=== PATIENT | male | born 1970 | race Caucasian/White ===

== ENCOUNTER 2020-02-24 16:45 | Emergency (ER) | payer BC ==
[2020-02-24 17:06] VITALS: BP 122/77; PULSE 97
[2020-02-24] MEDS ORDERED: FLU VACC QS2020-21(6MOS UP)/PF 60 MCG/0.5 ML SYRINGE IM ONE (17:30)
--- NOTE | 2020-02-24 19:43 | EDM.PDOC ---
ED HPI GENERAL MEDICAL PROBLEM - General Chief Complaint: Respiratory Problem Stated Complaint: COUGH/SOB/HEADACHE Time Seen by Provider: 02/24/20 17:08 Source of Information: Reports: Patient, RN Notes Reviewed History Limitations: Reports: No Limitations - History of Present Illness INITIAL COMMENTS - FREE TEXT/NARRATIVE: Patient is a 49-year-old male presenting to the emergency department with complaints of intermittent fever, cough, shortness of breath, nausea, vomiting, diarrhea. States that symptoms have been going on for 2 weeks but have worsened over the last few days. He was Covid tested a couple weeks back which came back negative. He had a Covid test completed on Thursday of this week as well, and these results are pending. Patient denies any history of asthma or any other other underlying medical history. When asked if he is able to keep foods or liquids down, he states that he does not eat or drink anything because it makes him nauseous. States that his temperatures at home have been between 98 degrees to 100 degrees. Vital signs on triage were stable. Blood pressure 122/77, respiratory rate 20, pulse 97, temp 98.7, oxygen 93% on room air. His oxygen had sat increased to 95% on room air by the time of my exam. Generalized Pain Score (Numeric/FACES): 5 - Related Data Allergies Allergy/AdvReac Type Severity Reaction Status Date / Time No Known Allergies Allergy Verified 02/24/20 17:07 Home Meds: Home Meds . [No Known Home Meds] 02/24/20 [History] Past Medical History HEENT History: Reports: Impaired Vision Gastrointestinal History: Reports: Other (See Below) Other Gastrointestinal History: chronic diarrhea Psychiatric History: Reports: Anxiety, Depression - Past Surgical History GI Surgical History: Reports: Hernia Repair/Other Social & Family History - Family History Family Medical History: No Pertinent Family History - Tobacco Use Tobacco Use Status *Q: Never Tobacco User Second Hand Smoke Exposure: No - Caffeine Use Caffeine Use: Reports: None - Recreational Drug Use Recreational Drug Use: No - Living Situation & Occupation Living situation: Reports: Occupation: Employed ED ROS GENERAL - Review of Systems Review Of Systems: See Below Constitutional: Reports: Fever, Chills, Fatigue, Decreased Appetite HEENT: Reports: No Symptoms. Denies: Sinus Problem, Throat Pain, Vision Change Respiratory: Reports: Shortness of Breath, Cough Cardiovascular: Reports: No Symptoms Endocrine: Reports: No Symptoms GI/Abdominal: Reports: Abdominal Pain, Diarrhea, Nausea, Vomiting : Reports: No Symptoms Musculoskeletal: Reports: No Symptoms Skin: Reports: No Symptoms Neurological: Reports: No Symptoms Psychiatric: Reports: No Symptoms Hematologic/Lymphatic: Reports: No Symptoms Immunologic: Reports: No Symptoms ED EXAM, GENERAL - Physical Exam Exam: See Below Exam Limited By: No Limitations General Appearance: Alert, WD/WN, No Apparent Distress Respiratory/Chest: No Respiratory Distress, Lungs Clear, Normal Breath Sounds, No Accessory Muscle Use, Chest Non-Tender Cardiovascular: Normal Peripheral Pulses, Regular Rate, Rhythm, No Edema, No Gallop, No JVD, No Murmur, No Rub GI/Abdominal: Normal Bowel Sounds, Soft, Non-Tender, No Organomegaly, No Distention, No Abnormal Bruit, No Mass Neurological: Alert, Oriented, CN II-XII Intact, Normal Cognition, Normal Gait, Normal Reflexes, No Motor/Sensory Deficits Psychiatric: Normal Affect, Normal Mood Skin Exam: Warm, Dry, Intact, Normal Color, No Rash Course - Vital Signs Last Recorded V/S: Last Vital Signs Temp 98.7 F 02/24/20 17:04 Pulse 97 02/24/20 17:04 Resp 20 02/24/20 17:04 BP 122/77 02/24/20 17:04 Pulse Ox 93 L 02/24/20 17:04 - Orders/Labs/Meds Orders: Active Orders 24 hr Category Date Time Status Chest 1V Frontal [CR] Stat Exams 02/24/20 17:32 Taken COMPREHENSIVE METABOLIC PN,CMP [CHEM] Stat Lab 02/24/20 18:30 Received FERRITIN [CHEM] Routine Lab 02/24/20 18:30 Received LACTATE DEHYDROGENASE,LDH [CHEM] Routine Lab 02/24/20 18:30 Received MG [MAGNESIUM] [CHEM] Stat Lab 02/24/20 18:30 Received Isolation [COMM] Routine Oth 02/24/20 18:17 Ordered Labs: Laboratory Tests 02/24/20 02/24/20 Range/Units 18:30 18:30 WBC 5.50 (4.23-9.07) K/mm3 RBC 4.97 (4.63-6.08) M/mm3 Hgb 15.0 D (13.7-17.5) gm/dl Hct 45.8 (40.1-51.0) % MCV 92.2 (79.0-92.2) fl MCH 30.2 (25.7-32.2) pg MCHC 32.8 (32.2-35.5) g/dl RDW Std Deviation 38.6 (35.1-43.9) fL Plt Count 138 L D (163-337) K/mm3 MPV 10.3 (9.4-12.3) fl Neut % (Auto) 85.3 H (34.0-67.9) % Lymph % (Auto) 7.6 L (21.8-53.1) % [place] % (Auto) 6.9 (5.3-12.2) % Eos % (Auto) 0 L (0.8-7.0) Baso % (Auto) 0.0 L (0.1-1.2) % Neut # (Auto) 4.69 (1.78-5.38) K/mm3 Lymph # (Auto) 0.42 L (1.32-3.57) K/mm3 [place] # (Auto) 0.38 (0.30-0.82) K/mm3 Eos # (Auto) 0.00 L (0.04-0.54) K/mm3 Baso # (Auto) 0.00 L (0.01-0.08) K/mm3 D-Dimer, Quantitative 1.89 H (0.19-0.50) mg/L Meds: Medications Discontinued Medications Generic Name Dose Route Start Last Admin Trade Name Freq PRN Reason Stop Dose Admin Influenza Virus Vaccine 60 mcg 02/24/20 17:30 Fluzone Quad [id number] Syringe IM 02/24/20 17:31 .ONCE ONE - Re-Assessments/Exams Free Text/Narrative Re-Assessment/Exam: She is a 49-year-old male presenting to the emergency department with complaints of a 2-week history of intermittent fevers, cough, shortness of breath, nausea, vomiting, diarrhea. He had told the triage nurse that it began 2 days ago, however he advised me that it was 2 weeks ago. Symptoms have worsened over the last few days. He was Covid tested on Thursday and currently pending. His exam is grossly unremarkable. Oxygen saturations have been 93 to 95% on room air based on his symptoms, and highly suspicious that he has Covid. I have ordered a chest x-ray, CBC, CMP, CRP, D-dimer, ferritin, LDH. 02/24/20 19:41 I was notified by nurse, MERLE Glover that patient has left the emergency department AGAINST MEDICAL ADVICE. He did not want to stay to sign the paperwork. Encouraged him to stay so that I may speak with him, however he stated he is going home and he does not feel better. Departure - Departure Time of Disposition: 19:43 Disposition: Against Medical Advice 07 Clinical Impression: Left against medical advice - Discharge Information Referrals: PCP,None [Primary Care Provider] - Forms: ED Department Discharge Sepsis Event Note (ED) - Evaluation Sepsis Screening Result: No Definite Risk - Focused Exam Vital Signs: Vital Signs Temp Pulse Resp BP Pulse Ox 02/24/20 17:04 98.7 F 97 20 122/77 93 L - My Orders Last 24 Hours: My Active Orders 02/24/20 17:32 Chest 1V Frontal [CR] Stat 02/24/20 18:17 Isolation [COMM] Routine 02/24/20 18:30 COMPREHENSIVE METABOLIC PN,CMP [CHEM] Stat FERRITIN [CHEM] Routine LACTATE DEHYDROGENASE,LDH [CHEM] Routine MG [MAGNESIUM] [CHEM] Stat - Assessment/Plan Last 24 Hours: My Active Orders 02/24/20 17:32 Chest 1V Frontal [CR] Stat 02/24/20 18:17 Isolation [COMM] Routine 02/24/20 18:30 COMPREHENSIVE METABOLIC PN,CMP [CHEM] Stat FERRITIN [CHEM] Routine LACTATE DEHYDROGENASE,LDH [CHEM] Routine MG [MAGNESIUM] [CHEM] Stat
--- NOTE | 2020-02-27 08:34 | CR ---
PROCEDURE INFORMATION: Exam: XR Chest, 1 View Exam date and time: 02/24/2020 5:47 PM Age: 49 years old Clinical indication: Cough and shortness of breath; Patient HX: Covid? TECHNIQUE: Imaging protocol: XR of the chest Views: 1 view. COMPARISON: DX Chest 2V 07/26/2015 5:25 PM FINDINGS: Lungs: There is now peripheral partially consolidative process left midlung Pleural space: Unremarkable. No pleural effusion. No pneumothorax. Heart/Mediastinum: Unremarkable. No cardiomegaly. Bones/joints: Unremarkable. IMPRESSION: Left lateral mid lung infiltrate Thank you for allowing us to participate in the care of your patient. Dictated and Authenticated by: Ray Posadas MD 02/24/2020 7:22 PM Central Time ([place] & Spring) [facility]
== END 2020-02-24 19:31 | disposition left against medical advice (07) ==
LOC: JD.ED 16:45
DX: R50.9 Fever, unspecified (principal); R05 Cough; R06.02 Shortness of breath; R11.2 Nausea with vomiting, unspecified; R19.7 Diarrhea, unspecified; R53.83 Other fatigue; R10.9 Unspecified abdominal pain; R63.0 Anorexia
CPT/HCPCS: 36415; 71045; 71045-26; 80053; 82728; 83615; 83735; 85025; 85379; 86140; 87804; 99282; 99285-25

== ENCOUNTER 2020-02-25 16:38 | Emergency (ER) | payer BC ==
[2020-02-25] MEDS ORDERED: LORazepam 0.5 MG Tab PO ONE (17:14)
--- NOTE | 2020-02-25 17:21 | EDM.PDOC ---
ED HPI GENERAL MEDICAL PROBLEM - General Chief Complaint: General Stated Complaint: CANT SLEEP/WAS TESTED FOR COVID YESTERDAY Time Seen by Provider: 02/25/20 16:57 Source of Information: Reports: Patient, RN Notes Reviewed History Limitations: Reports: No Limitations - History of Present Illness INITIAL COMMENTS - FREE TEXT/NARRATIVE: Patient is a 49-year-old male who presents to the ED for the evaluation of his ongoing COVID-19 symptoms. Patient notes he has been sick for the last 2 weeks, he was seen in this ER yesterday, had some labs taken but he left without getting the results. He states that he has not been able to sleep in the last 5 days. He was tested from the [facility] for COVID-19, and relays that he had a negative result. He has had multiple negative results. Review of his labs yesterday, do demonstrate elevated ferritin, elevated D-dimer, elevated CRP all suggestive of a positive COVID-19 infection. With him being as symptomatic as he is, I would say that he is positive for COVID-19 at this time. Right now I am unsure of the timeline of his symptoms; as he thinks he has been symptomatic for 2 weeks. He states that he feels anxious, he is not had a really great appetite for the past week or so, as he states everything just tastes horrible. He does note that he has been coughing quite a bit as well. He has had no fevers or chills recently, his O2 sats are 93% on room air. - Related Data Allergies Allergy/AdvReac Type Severity Reaction Status Date / Time No Known Allergies Allergy Verified 02/25/20 16:49 Home Meds: Home Meds LORazepam [Ativan] 1 mg PO TID PRN #21 tab 02/25/20 [Rx] Zolpidem [Ambien] 5 mg PO BEDTIME PRN #10 tab 02/25/20 [Rx] Past Medical History HEENT History: Reports: Impaired Vision Gastrointestinal History: Reports: Other (See Below) Other Gastrointestinal History: chronic diarrhea Psychiatric History: Reports: Anxiety, Depression - Past Surgical History GI Surgical History: Reports: Hernia Repair/Other Social & Family History - Family History Family Medical History: No Pertinent Family History - Tobacco Use Tobacco Use Status *Q: Never Tobacco User Second Hand Smoke Exposure: No - Caffeine Use Caffeine Use: Reports: Soda - Recreational Drug Use Recreational Drug Use: No - Living Situation & Occupation Living situation: Reports: Occupation: Employed ED ROS GENERAL - Review of Systems Review Of Systems: Comprehensive ROS is negative, except as noted in HPI. ED EXAM, GENERAL - Physical Exam Exam: See Below Exam Limited By: No Limitations General Appearance: Alert, WD/WN, No Apparent Distress Respiratory/Chest: No Respiratory Distress, Lungs Clear, Normal Breath Sounds, No Accessory Muscle Use, Chest Non-Tender Cardiovascular: Normal Peripheral Pulses, Regular Rate, Rhythm, No Murmur Peripheral Pulses: 2+: Radial (L), Radial (R) Extremities: Normal Inspection, Normal Capillary Refill Neurological: Alert, Oriented, Normal Cognition, No Motor/Sensory Deficits Psychiatric: Normal Affect, Normal Mood Skin Exam: Warm, Dry, Intact, Normal Color, No Rash Course - Vital Signs Last Recorded V/S: Last Vital Signs Temp 97.5 F 02/25/20 16:47 Pulse 95 02/25/20 16:47 Resp 20 02/25/20 16:47 BP 124/77 02/25/20 16:47 Pulse Ox 93 L 02/25/20 16:47 - Orders/Labs/Meds Meds: Medications Discontinued Medications Generic Name Dose Route Start Last Admin Trade Name Jaxq PRN Reason Stop Dose Admin Lorazepam 1 mg 02/25/20 17:14 02/25/20 17:38 Ativan PO 02/25/20 17:15 1 mg ONETIME ONE Administration - Re-Assessments/Exams Free Text/Narrative Re-Assessment/Exam: 02/25/20 17:26 Patient presents to the ED for his ongoing [id number] symptoms. Review of his visit yesterday, does demonstrate a COVID-19 infection consistent with lab oratory evaluation. He notes that he has been having issues sleeping, is not sure if this is due to anxiety or otherwise. I did offer him 1mg Ativan, and he accepted at this time for management. We will see how this affects him and likely send him home with some of this for the next few days. We will do no more laboratory evaluation at today's visit. 02/25/20 18:06 Patient states he feels more relaxed after the Ativan, but still is not sleepy. With this news, I will provide him with a prescription for 1 weeks worth of Ativan to take as needed for anxiety and give him some 5 mg tablets of Ambien for the next few nights to see if this helps get him to sleep. Departure - Departure Time of Disposition: 18:06 Disposition: Home, Self-Care 01 Condition: Good Clinical Impression: COVID-19 determined by clinical diagnostic criteria Insomnia Qualifiers: Insomnia type: unspecified Qualified Code(s): G47.00 - Insomnia, unspecified - Discharge Information *PRESCRIPTION DRUG MONITORING PROGRAM REVIEWED*: Yes *COPY OF PRESCRIPTION DRUG MONITORING REPORT IN PATIENT ANDREW: No Prescriptions: Zolpidem [Ambien] 5 mg PO BEDTIME PRN #10 tab PRN Reason: Sleep LORazepam [Ativan] 1 mg PO TID PRN #21 tab PRN Reason: Anxiety Instructions: COVID-19: How to Protect Yourself and Others - CDC, Prevent the Spread of COVID-19 if You Are Sick - [facility] Referrals: PCP,None [Primary Care Provider] - Forms: ED Department Discharge Additional Instructions: You were seen in the ER today for ongoing and/or worsening respiratory symptoms. Your chest x-ray done yesterday showed no signs of pneumonia at this time. Your oxygen levels were great at 96-97% on room air. Your laboratory evaluation done at yesterday's visit, would suggest that you are positive for COVID-19 even with the negative nasal swab that you received. We ask that you self-quarantine and limit your exposure to others for at least another 10 to 14 days. Please try to increase your oral fluid intake, and eat multiple small meals throughout the day, to keep yourself healthy. You need to keep yourself nourished in order to fight off this disease. You can try a liquid diet like gatorade/powerade as well to get your electrolytes. You may take 500 mg Tylenol every hours 6 hours for pain/fever relief. Do not exceed 4000 mg Tylenol in a 24-hour time span. However, running a fever is your body's natural response to illness, and it allows the body to develop antibodies to disease, we are recommending trying to limit the use of Tylenol as much as possible to allow your body's natural immune response. Recommend you obtain a pulse oximeter and monitor your oxygen levels at home, you should place the monitor on your finger, and sit in a calm, quiet position for a few minutes and then record the number that is on the screen. If this consistently below 90% on room air without movement, this would be cause for concern to come back to the hospital for further management of your COVID-19 disease. The [place] COVID-19 hotline telephone number is [phone], it is open from 8am-5pm Thursday through Thursday. You can call this number if you have any questions regarding your COVID-19 status. Since you did not have a positive swab, you will likely not have a [employer] unless they assign one to you if you call them and tell them that you were positive by lab standards in the ER. You were given a prescription for 2 medications; Ativan, for your your generalized anxiety, 1 tablet 3 times a day as needed for further anxiety symptoms. You were also given a prescription for Ambien, to help you sleep; you will need to take this about 30min before you are ready to go to bed, please try to get a full 8 hours of sleep after taking this medication. If you did not have a primary care provider already, I recommend that you follow-up with a provider in our clinic, any family practice provider would be able to provide you with the services. Our clinic telephone number [phone], please call Thursday morning to obtain an appointment with the provider, for follow-up of your symptoms that prompted your ER visit today. Sepsis Event Note (ED) - Evaluation Sepsis Screening Result: No Definite Risk - Focused Exam Vital Signs: Vital Signs Temp Pulse Resp BP Pulse Ox 02/25/20 16:47 97.5 F 95 20 124/77 93 L
[2020-02-25 18:21] VITALS: BP 117/69; PULSE 93
== END 2020-02-25 18:25 | disposition home or self-care (01) ==
LOC: JD.ED 16:38
DX: U07.1 COVID-19 (principal); G47.00 Insomnia, unspecified; F41.9 Anxiety disorder, unspecified; F32.9 Major depressive disorder, single episode, unspecified; Z79.899 Other long term (current) drug therapy
CPT/HCPCS: 99283; A9270; 99284

== ENCOUNTER 2020-03-27 08:17 | Emergency (ER) | payer BC ==
--- NOTE | 2020-03-27 08:33 | EDM.PDOC ---
ED HPI GENERAL MEDICAL PROBLEM - General Chief Complaint: Chest Pain Stated Complaint: CHEST PAIN WHEN BREATHING Time Seen by Provider: 03/27/20 08:30 Source of Information: Reports: Patient History Limitations: Reports: No Limitations - History of Present Illness INITIAL COMMENTS - FREE TEXT/NARRATIVE: 49-year-old male presents to the ED complaining of sharp stabbing pains across his anterior chest with deep breathing and coughing. Patient apparently had symptoms of COVID-19 illness in the early part of February 2020 but tested negative. 2 weeks later he did test positive for the antibodies indicating that he did in fact have COVID-19 illness. He missed most of the month of February's work due to illness. Problems with him employer developed and he is currently unemployed. Patient was seen 2 weeks ago and was given antibiotics for suspected pneumonia. He states he was really not any better after course of antibiotics which I believe was a Z-Avery. His appetite is slowly coming back. He lost 20 pounds of weight with the illness. He states his taste is not completely back to normal. Bowel function is pretty normal. Continues to have a intermittent paroxysmal nonproductive cough with no hemoptysis. Of note respiratory rate is 20/min with O2 sats of 97% on room air. Onset: Gradual Onset Date: 03/22/20 Duration: Day(s):, Constant, Waxing/Waning Location: Reports: Chest (Sharp stabbing pains mostly pleuritic across both upper anterior aspect of his chest. None in his back.) Quality: Reports: Sharp, Stabbing, Other (Reticulocyte) Severity: Moderate Improves with: Reports: None Worsens with: Reports: Other Context: Denies: Activity (Breathing and coughing.), Exercise, Lifting, Sick Contact, Trauma, Other Associated Symptoms: Reports: Cough, Malaise, Shortness of Breath. 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 (see below) Chest Pain Score (Numeric/FACES): 6 - Related Data Allergies Allergy/AdvReac Type Severity Reaction Status Date / Time No Known Allergies Allergy Verified 03/27/20 08:37 Home Meds: Home Meds dexAMETHasone [Dexamethasone] 4 mg PO ASDIRECTED #16 tablet 03/27/20 [Rx] Past Medical History HEENT History: Reports: Impaired Vision Gastrointestinal History: Reports: Other (See Below) Other Gastrointestinal History: chronic diarrhea Psychiatric History: Reports: Anxiety, Depression - Past Surgical History GI Surgical History: Reports: Hernia Repair/Other Social & Family History - Family History Family Medical History: No Pertinent Family History - Caffeine Use Caffeine Use: Reports: Soda - Living Situation & Occupation Living situation: Reports: Occupation: Unemployed ED ROS GENERAL - Review of Systems Review Of Systems: See Below Constitutional: Reports: Malaise, Weakness, Fatigue, Weight Loss. Denies: Fever, Chills, Decreased Appetite (Lose 20 pounds of weight and is slowly gaining it back with the COVID-19 illness.) HEENT: Reports: No Symptoms Respiratory: Reports: Shortness of Breath, Pleuritic Chest Pain. Denies: Wheezing, Cough, Sputum, Hemoptysis, Other Cardiovascular: Reports: Chest Pain (Chest pain), Dyspnea on Exertion. Denies: Blood Pressure Problem, Claudication, Edema, Lightheadedness, Orthopnea Endocrine: Reports: No Symptoms GI/Abdominal: Reports: No Symptoms : Reports: No Symptoms Musculoskeletal: Reports: No Symptoms Skin: Reports: No Symptoms Neurological: Reports: No Symptoms Psychiatric: Reports: No Symptoms Hematologic/Lymphatic: Reports: No Symptoms Immunologic: Reports: No Symptoms ED EXAM, GENERAL - Physical Exam Exam: See Below Exam Limited By: No Limitations General Appearance: Alert, WD/WN, No Apparent Distress, Other (Temperature is 36.3 with a heart rate 102 and sinus at the bedside. Respiratory to 20 with O2 sats of 97% room air BP 116/82.) Eye Exam: Bilateral Eye: Normal Inspection, PERRL (No scleral icterus or blepharal pallor.) Throat/Mouth: Other Head: Atraumatic (Tongue is mildly dry and coated. He has not yet eaten this morning.), Normocephalic Neck: Normal Inspection, Supple, Non-Tender, Full Range of Motion. No: Carotid Bruit, Lymphadenopathy (L), Lymphadenopathy (R) Respiratory/Chest: No Respiratory Distress, Lungs Clear, Normal Breath Sounds, No Accessory Muscle Use, Respiratory Distress (Mild tachypnea), Other (Could not elicit any chest wall tenderness on palpation of the ribs in the midclavicular line). No: Chest Non-Tender Cardiovascular: Normal Peripheral Pulses, Regular Rate, Rhythm, No Edema, No Gallop, No Murmur, No Rub Peripheral Pulses: 3+: Carotid (L) (Heart rate is currently 90/min.), Carotid (R), Posterior Tibial (L), Posterior Tibial (R), Dorsalis Pedis (L), Dorsalis Pedis (R) GI/Abdominal: Normal Bowel Sounds, Soft, Non-Tender, No Organomegaly, No Abnormal Bruit, No Mass, Pelvis Stable, Other (No surgical scars. Scaphoid abdomen.) Back Exam: Normal Inspection, Full Range of Motion. No: CVA Tenderness (L), CVA Tenderness (R) Extremities: Normal Inspection, Normal Range of Motion, Non-Tender, No Pedal Edema Neurological: Alert, Oriented, CN II-XII Intact, Normal Cognition, Normal Gait Psychiatric: Normal Affect, Normal Mood Skin Exam: Warm, Dry, Intact, Normal Color, No Rash #1 Interpretation EKG Date: 03/27/20 Time: 08:26 Rhythm: Other (Sinus tachycardia) Rate (Beats/Min): 101 [place]: Normal P-Wave: Present QRS: Other (Decreased voltage throughout the limb and precordial leads.) ST-T: Elevated (Minimal ST segment elevation in leads II, III and aVF consider inferior wall ischemia.) QT: Normal EKG Interpretation Comments: Abnormal ECG Course - Vital Signs Last Recorded V/S: Last Vital Signs Temp 36.3 C 03/27/20 08:20 Pulse 102 H 03/27/20 08:20 Resp 20 03/27/20 08:20 BP 116/82 03/27/20 08:20 Pulse Ox 97 03/27/20 08:20 - Orders/Labs/Meds Orders: Active Orders 24 hr Category Date Time Status URINALYSIS W/MICROSCOPIC [UA W/MICROSCOPIC] [URIN] Stat Lab 03/27/20 10:20 Received Dextrose 5%-0.9% NaCl [Dextrose 5%-Normal Saline] 1,000 Med 03/27/20 08:45 Active ml IV ASDIRECTED Ketorolac [Toradol] Med 03/27/20 09:00 Active 30 mg IVPUSH ONETIME Medication Orders Dextrose/Sodium Chloride (Dextrose 5%-Normal Saline) 1,000 mls @ 150 mls/hr IV ASDIRECTED COUNT INCLUDES THE [facility] Last Admin: 03/27/20 09:01 Dose: 150 mls/hr Documented by: REJI Ketorolac Tromethamine (Toradol) 30 mg IVPUSH ONETIME COUNT INCLUDES THE [facility] Last Admin: 03/27/20 08:59 Dose: 30 mg Documented by: REJI Labs: Laboratory Tests 03/27/20 03/27/20 03/27/20 Range/Units 08:55 08:55 08:55 WBC 6.94 (4.23-9.07) K/mm3 RBC 5.13 (4.63-6.08) M/mm3 Hgb 15.7 (13.7-17.5) gm/dl Hct 48.1 (40.1-51.0) % MCV 93.8 H (79.0-92.2) fl MCH 30.6 (25.7-32.2) pg MCHC 32.6 (32.2-35.5) g/dl RDW Std Deviation 42.2 (35.1-43.9) fL Plt Count 169 (163-337) K/mm3 MPV 10.9 (9.4-12.3) fl Neut % (Auto) 80.3 H (34.0-67.9) % Lymph % (Auto) 10.2 L (21.8-53.1) % Cole % (Auto) 9.2 (5.3-12.2) % Eos % (Auto) 0.1 L (0.8-7.0) Baso % (Auto) 0.1 (0.1-1.2) % Neut # (Auto) 5.56 H (1.78-5.38) K/mm3 Lymph # (Auto) 0.71 L (1.32-3.57) K/mm3 Cole # (Auto) 0.64 (0.30-0.82) K/mm3 Eos # (Auto) 0.01 L (0.04-0.54) K/mm3 Baso # (Auto) 0.01 (0.01-0.08) K/mm3 PT 10.8 (9.7-12.0) SECONDS INR 1.01 APTT 25.9 (21.7-31.4) SECONDS D-Dimer, Quantitative 1.26 H (0.19-0.50) mg/L Sodium 141 (136-145) mEq/L Potassium 3.7 (3.5-5.1) mEq/L Chloride 106 (98-107) mEq/L Carbon Dioxide 29 (21-32) mEq/L Anion Gap 9.7 (5-15) BUN 13 (7-18) mg/dL Creatinine 1.0 (0.7-1.3) mg/dL Est Cr Clr Drug Dosing 85.99 mL/min Estimated GFR (MDRD) > 60 (>60) mL/min BUN/Creatinine Ratio 13.0 L (14-18) Glucose 136 H (74-106) mg/dL Calcium 9.0 (8.5-10.1) mg/dL Magnesium 2.1 (1.8-2.4) mg/dl Total Bilirubin 0.5 (0.2-1.0) mg/dL AST 18 (15-37) U/L ALT 60 (16-63) U/L Alkaline Phosphatase 62 (46-116) U/L Lactate Dehydrogenase 154 (85-227) U/L CK-MB (CK-2) < 0.5 (0-3.6) ng/ml Troponin I < 0.017 (0.00-0.056) ng/mL C-Reactive Protein 1.0 (<1.0) mg/dL NT-Pro-B Natriuret Pep (0-125) pg/mL Total Protein 7.1 (6.4-8.2) g/dl Albumin 3.6 (3.4-5.0) g/dl Globulin 3.5 gm/dL Albumin/Globulin Ratio 1.0 (1-2) 03/27/20 Range/Units 08:55 WBC (4.23-9.07) K/mm3 RBC (4.63-6.08) M/mm3 Hgb (13.7-17.5) gm/dl Hct (40.1-51.0) % MCV (79.0-92.2) fl MCH (25.7-32.2) pg MCHC (32.2-35.5) g/dl RDW Std Deviation (35.1-43.9) fL Plt Count (163-337) K/mm3 MPV (9.4-12.3) fl Neut % (Auto) (34.0-67.9) % Lymph % (Auto) (21.8-53.1) % Cole % (Auto) (5.3-12.2) % Eos % (Auto) (0.8-7.0) Baso % (Auto) (0.1-1.2) % Neut # (Auto) (1.78-5.38) K/mm3 Lymph # (Auto) (1.32-3.57) K/mm3 Cole # (Auto) (0.30-0.82) K/mm3 Eos # (Auto) (0.04-0.54) K/mm3 Baso # (Auto) (0.01-0.08) K/mm3 PT (9.7-12.0) SECONDS INR APTT (21.7-31.4) SECONDS D-Dimer, Quantitative (0.19-0.50) mg/L Sodium (136-145) mEq/L Potassium (3.5-5.1) mEq/L Chloride (98-107) mEq/L Carbon Dioxide (21-32) mEq/L Anion Gap (5-15) BUN (7-18) mg/dL Creatinine (0.7-1.3) mg/dL Est Cr Clr Drug Dosing mL/min Estimated GFR (MDRD) (>60) mL/min BUN/Creatinine Ratio (14-18) Glucose (74-106) mg/dL Calcium (8.5-10.1) mg/dL Magnesium (1.8-2.4) mg/dl Total Bilirubin (0.2-1.0) mg/dL AST (15-37) U/L ALT (16-63) U/L Alkaline Phosphatase (46-116) U/L Lactate Dehydrogenase (85-227) U/L CK-MB (CK-2) (0-3.6) ng/ml Troponin I (0.00-0.056) ng/mL C-Reactive Protein (<1.0) mg/dL NT-Pro-B Natriuret Pep 190 H (0-125) pg/mL Total Protein (6.4-8.2) g/dl Albumin (3.4-5.0) g/dl Globulin gm/dL Albumin/Globulin Ratio (1-2) Meds: Medications Generic Name Dose Route Start Last Admin Trade Name Freq PRN Reason Stop Dose Admin Dextrose/Sodium Chloride 1,000 mls @ 150 mls/hr 03/27/20 08:45 03/27/20 09:01 Dextrose 5%-Normal Saline IV 150 mls/hr ASDIRECTED VIKTOR Administration Ketorolac Tromethamine 30 mg 03/27/20 09:00 03/27/20 08:59 Toradol IVPUSH 30 mg ONETIME VIKTOR Administration Discontinued Medications Generic Name Dose Route Start Last Admin Trade Name Zacarias PRN Reason Stop Dose Admin Dexamethasone 6 mg 03/27/20 10:37 03/27/20 10:48 Decadron IVPUSH 03/27/20 10:38 6 mg ONETIME ONE Administration Hydromorphone HCl 1 mg 03/27/20 10:34 03/27/20 10:52 Dilaudid IVPUSH 03/27/20 10:35 Not Given ONETIME ONE - Radiology Interpretation Free Text/Narrative:: 49-year-old male presents to the ED with pleuritic chest pain or pain on inspiration across both upper anterior sides of his chest. This is been present for least 3 to 4 days and waxes and wanes. He is a COVID-19 patient probably becoming ill early part of February which proved false negative on testing but subsequently proved positive with antibody testing. He continues to have shortness of breath on exertion. He lost 20 pounds of weight with illness and is slowly gaining his weight back. Continues to have an intermittent dry paroxysmal cough. No hemoptysis. He has treated been treated with a course of antibiotics for suspected pneumonia 2 weeks ago which really did not make him any better. Examination is completely normal with O2 sats of 97% on room air. Plan IV D5 normal saline at 150 mils per hour as he appears mildly dehydrated has not yet eaten today. IV access for lab check. This will include troponin and CPK. D-dimer as well. Chest x-ray x1 view. Given Toradol 30 mg IV for pain relief. - Re-Assessments/Exams Free Text/Narrative Re-Assessment/Exam: 03/27/20 09:07 chest x-ray done portably reveals slightly hyperinflated lung castellanos. Cardiac silhouette is normal. The x-ray is mildly overpenetrated. Prominence of the right pulmonary artery appreciated. There is late parenchymal density noted within the left upper lung. Slight density noted within the right upper lung as well. Mild increased density is also seen within the right mid to lower lung. These areas suggest resolving COVID-19 pneumoni 03/27/20 09:32 Hematology reveals a white count of 6.94. Differential shows 80.3% neutrophils. Hemoglobin 15.7 with hematocrit of 48.1 MCV slightly elevated at 93.8. Platelet count 169,000. 03/27/20 09:48 I have discussed the chest x-ray results with the patient indicating that I believe he has still residual post Covid pneumonitis with pleurisy pain. Going to await the rest of his labs i.e. D-dimer and troponin before giving him dexamethasone intravenously as an anti-inflammatory and then start on oral Dex for home use. 03/27/20 10:24 PT is 10.8 with an INR of 1.01. PTT is 25.9. D-dimer is mildly elevated at 1.26 felt to be secondary to COVID-19. Sodium 141 with potassium of 3.7. Chloride 106 with a bicarb of 29. Anion gap is 9.7. BUN is 13 with a creatinine of 1.0 GFR is greater than 60. Glucose 136 with a calcium of 9.0 magnesium 2.1 liver function normal LDH 154 CK-MB fraction less than 0.5 troponin I less than 0.017 C-reactive protein 1.0 BNP slightly elevated at 190. Total protein 7.1 with an albumin fraction of 3.6. DH came back at 154 indicating no significant inflammation of his lungs. 03/27/20 10:34 I had a discussion with the patient about his slightly elevated D-dimer. He indicates that a week ago at [facility] his D-dimer was 3 times the normal value in a he did undergo a CT pulmonary angiogram which was negative. I am therefore going to opt not to repeat the test since his O2 sats are 97% and I feel unlikely to yield any positivity. I am going to place him on dexamethasone 6 mg IV now and then he will start 4 mg of dexamethasone twice daily with breakfast and supper for 5 days and then once in the morning only for another 5 days to reduce inflammation I believe secondary to COVID-19 viral pneumonitis. Of note Dilaudid 1 mg IV was somehow ordered on this patient. It was never given and was ordered in error. Departure - Departure Time of Disposition: 10:38 Disposition: Home, Self-Care 01 Reason for Transfer *Q: Other Condition: Fair Clinical Impression: Pleurisy without effusion Prescriptions: dexAMETHasone [Dexamethasone] 4 mg PO ASDIRECTED #16 tablet Instructions: Pleurisy, [id number] Referrals: PCP,None [Primary Care Provider] - Forms: ED Department Discharge Additional Instructions: Evaluation in the emergency room today in regards to diffuse upper sharp stabbing anterior chest pains starting yesterday and somewhat worse today. You are known to have COVID-19 illness in the early part of February with persistent illness with fatigue and shortness of breath remains on exertion. Chest x-ray done today shows scattered very small infiltrates in both upper lobes and the right middle lobe compatible with COVID-19 viral pneumonitis. This is the cause of pleurisy or sharp stabbing pain with deep inspiration or coughing. Your D- dimer is still slightly elevated believed to be secondary to the COVID-19 illness and since you had a CT pulmonary angiogram last week at [place] and it was negative for any blood clots in the lungs it will not be repeated. Treatment will be dexamethasone steroid to reduce inflammation. Initial dose was provided intravenously in the ED. You will need to take a 4 mg tablet tonight before bed with a little bit of food in your stomach. After this it should be taken with breakfast and supper for 5 days and then once in the morning only for another 5 days to complete a 10-day course of treatment. Follow-up with your personal care physician if any further problems occur. Could still use the occasional Motrin or Aleve 2 tablets every 8 hours if needed for pleuritic chest pain relief. Usually the dexamethasone will start working quite well within 48 hours and should relieve most of the anterior chest wall pain or pleurisy. Sepsis Event Note (ED) - Focused Exam Vital Signs: Vital Signs Temp Pulse Resp BP Pulse Ox 03/27/20 08:20 36.3 C 102 H 20 116/82 97 - My Orders Last 24 Hours: My Active Orders 03/27/20 08:45 Dextrose 5%-0.9% NaCl [Dextrose 5%-Normal Saline] 1,000 ml IV ASDIRECTED 03/27/20 09:00 Ketorolac [Toradol] 30 mg IVPUSH ONETIME 03/27/20 10:20 URINALYSIS W/MICROSCOPIC [UA W/MICROSCOPIC] [URIN] Stat - Assessment/Plan Last 24 Hours: My Active Orders 03/27/20 08:45 Dextrose 5%-0.9% NaCl [Dextrose 5%-Normal Saline] 1,000 ml IV ASDIRECTED 03/27/20 09:00 Ketorolac [Toradol] 30 mg IVPUSH ONETIME 03/27/20 10:20 URINALYSIS W/MICROSCOPIC [UA W/MICROSCOPIC] [URIN] Stat
[2020-03-27] MEDS ORDERED: Dextrose 5%-0.9% NaCl 1,000 ML IV SCH (08:45)
[2020-03-27] MEDS ORDERED: Ketorolac 30 MG/ML SDV IVPUSH SCH (09:00)
--- NOTE | 2020-03-27 09:13 | CR ---
Chest: Portable view of the chest was obtained. Comparison: Prior chest x-ray of 02/24/20. Heart size and mediastinum are normal. Slight parenchymal density is noted within the left upper lung. Slight density noted within the right upper lung. Mild increased density also seen within the right mid to lower lung. Bony structures are grossly intact. Impression: 1. Slight areas of increased density as noted above. Findings could represent small areas of pneumonia. Please rule out positive COVID status. Diagnostic code #3
[2020-03-27] MEDS ORDERED: HYDROmorphone 1 MG/ML Syringe IVPUSH ONE (10:34)
[2020-03-27] MEDS ORDERED: Dexamethasone 10 MG/ML SDV IVPUSH ONE (10:37)
[2020-03-27 11:20] VITALS: BP 117/80; PULSE 78
== END 2020-03-27 11:17 | disposition home or self-care (01) ==
LOC: JD.ED 08:17
DX: R09.1 Pleurisy (principal)
CPT/HCPCS: 36415; 71045; 80053; 81001; 82553; 83615; 83735; 83880; 84484; 85025; 85379; 85610; 85730; 86140; 96374; 99284; J1100; J1885; J7042

== ENCOUNTER 2020-12-26 05:35 | Emergency (ER) | payer BC ==
[2020-12-26 05:51] VITALS: BP 145/89; PULSE 85
--- NOTE | 2020-12-26 05:59 | EDM.PDOCBH ---
ED HPI GENERAL MEDICAL PROBLEM - General Chief Complaint: Behavioral/Psych Stated Complaint: DEPRESSION Time Seen by Provider: 12/26/20 05:59 - History of Present Illness INITIAL COMMENTS - FREE TEXT/NARRATIVE: 50-year-old male presents the emergency room wishing to be started on something for depression and anxiety. Patient has a long history of depression with anxiety. And he would like to be started on some medication. He was last taking duloxetine, and states he did well with this. The patient is having a lot of depression and anxiety he thinks a lot of this is brought on with the pandemic and other issues in his life. The patient also had some issues when he himself was getting over Covid. He states he had several weeks of foggy mind and thoughts. He has absolutely no thoughts of harming himself or anyone else and is not suicidal at this point. I explained to the patient early on that the emergency room is not an appropriate place to be started on antidepression or anxiety medication as these medications are best prescribed in a continuity setting and they need very close observation. - Related Data Allergies Allergy/AdvReac Type Severity Reaction Status Date / Time No Known Allergies Allergy Verified 12/26/20 05:47 Home Meds: Home Meds DULoxetine [Cymbalta] 20 mg PO DAILY #7 cap 12/26/20 [Rx] Past Medical History HEENT History: Reports: Impaired Vision Other HEENT History: wears eyeglasses. Respiratory History: Reports: Pneumonia, Recurrent, Other (See Below) Other Respiratory History: pleursy Gastrointestinal History: Reports: Other (See Below) Other Gastrointestinal History: chronic diarrhea Musculoskeletal History: Reports: Fracture Psychiatric History: Reports: Anxiety, Depression - Infectious Disease History Infectious Disease History: Reports: Chicken Pox, Novel Coronavirus - Past Surgical History GI Surgical History: Reports: Hernia Repair/Other Social & Family History - Family History Family Medical History: No Pertinent Family History - Tobacco Use Tobacco Use Status *Q: Never Tobacco User - Caffeine Use Caffeine Use: Reports: Soda - Living Situation & Occupation Living situation: Reports: Occupation: Unemployed ED ROS GENERAL - Review of Systems Review Of Systems: See Below Constitutional: Reports: No Symptoms HEENT: Reports: No Symptoms Respiratory: Reports: No Symptoms Cardiovascular: Reports: No Symptoms Endocrine: Reports: No Symptoms GI/Abdominal: Reports: No Symptoms ED EXAM, BEHAVIORAL HEALTH - Physical Exam Exam: See Below Exam Limited By: No Limitations General Appearance: Alert, No Apparent Distress Head: Atraumatic, Normocephalic Neck: Normal Inspection, Supple, Non-Tender, Full Range of Motion. No: Lymphadenopathy (L), Lymphadenopathy (R) Respiratory/Chest: No Respiratory Distress, Lungs Clear, Normal Breath Sounds Cardiovascular: Regular Rate, Rhythm, No Edema, No Murmur Neurological: Alert, Normal Mood/Affect, Normal Cognition Psychiatric: Alert, Normal Cognition, Normal Mood, Oriented. No: Uncooperative, Withdrawn, Flight of Ideas, Homicidal Thoughts, Suicidal Plan, Suicidal Thoughts, Auditory Hallucinations, Visual Hallucinations COURSE, BEHAVIORAL HEALTH COMP - Course Vital Signs: Last Vital Signs Temp 36.7 C 12/26/20 05:48 Pulse 85 12/26/20 05:48 Resp 18 12/26/20 05:48 BP 145/89 H 12/26/20 05:48 Pulse Ox 100 12/26/20 05:48 Medical Clearance: 12/26/20 06:47 I have advised the patient that the best care for him would be in the clinic. As medications such that he is looking for really our best managed with close observation especially in the early phases. The patient does voice understanding for this. I will start him on duloxetine 20 mg daily. #7. He agrees to follow-up in the hospital clinic for further management of his depression and anxiety. Again he assures me he has no intent to harm himself or anyone else and agrees to follow-up in the clinic for further management. Departure - Departure Time of Disposition: 06:49 Disposition: Home, Self-Care 01 Clinical Impression: Depressive disorder, Anxiety - Discharge Information Prescriptions: DULoxetine [Cymbalta] 20 mg PO DAILY #7 cap Instructions: Major Depressive Disorder, Adult, [id number] Referrals: PCP,None [Primary Care Provider] - Forms: ED Department Discharge Additional Instructions: Return to the emergency room with any questions problems or worsening symptoms. Return immediately if you are getting thoughts of harming yourself or other people. As we discussed, I have started you on duloxetine 20 mg tablets take 1 daily. I have given you a 7-day supply this was sent electronically to the [facility] pharmacy on [address]. You must follow-up in the clinic for dosage adjustment and continuation of this medication. Call the clinic today for an appointment within 7 days for follow-up. The clinic phone number is [phone]. Sepsis Event Note (ED) - Evaluation Sepsis Screening Result: No Definite Risk - Focused Exam Vital Signs: Vital Signs Temp Pulse Resp BP Pulse Ox 12/26/20 05:48 36.7 C 85 18 145/89 H 100
== END 2020-12-26 07:01 | disposition home or self-care (01) ==
LOC: JD.ED 05:35
DX: F32.9 Major depressive disorder, single episode, unspecified (principal); F41.9 Anxiety disorder, unspecified; Z86.16 Personal history of COVID-19
CPT/HCPCS: 99283